=== PATIENT | male | born 1940 | race Caucasian/White ===

== ENCOUNTER → 2021-08-16 | Outpatient (CLI) | payer MEDICARE ==
[~2021-08-16] MED LIST: CALC1CAP7 PO; DOCU100C28 PO; HYDR-2761 PO; POLY119P4 PO; SAW/1TAB2 PO
== END ==
LOC: LAB 10:10
PROVIDERS: ATTEND Surgery
DX: Z01.812 Encounter for preprocedural laboratory examination (principal); Z20.822 Contact with and (suspected) exposure to COVID-19
CPT/HCPCS: C9803; U0003

== ENCOUNTER 2021-08-19 06:35 | Observation (INO) | payer MEDICARE ==
[~2021-08-19] VITALS: Ht 180.3 cm; Wt 56.8 kg
[2021-08-19] VITALS (10 sets, daily range): BP systolic 89–166; BP diastolic 55–98
[~2021-08-19 06:35] MED LIST changes: -CALC1CAP7 PO; +CLINDAMYCIN 900MG PREMIX 50 ML IV PRN; -DOCU100C28 PO; -HYDR-2761 PO; -POLY119P4 PO; -SAW/1TAB2 PO
[2021-08-19] MEDS ORDERED: SAW/1TAB2 PO (06:47)
[2021-08-19] MEDS ORDERED: CALC1CAP7 PO (06:47)
[2021-08-19] MEDS ORDERED: IV RINGERS,LACTATED 1000ML 1,000 ML IV SCH ×2 (07:00→11:15)
[2021-08-19] MEDS ORDERED: BUPIVACAINE-EPI 0.5% 30 ML VIAL KIT. ONE (07:03)
[2021-08-19] MEDS ORDERED: ONDANSETRON PF 4 MG/2 ML VIAL. ONE (07:59)
[2021-08-19] MEDS ORDERED: LIDOCAINE 2% PF 5 ML VIAL. ONE (07:59)
[2021-08-19] MEDS ORDERED: DEXAMETHASONE SOD PHOS 4 MG/ML VIAL ONE (07:59)
[2021-08-19] MEDS ORDERED: SEVOFLURANE 31 TO 60 MINUTES. IH ONE (07:59)
[2021-08-19] MEDS ORDERED: PROPOFOL 10 MG/ML (20ML) VIAL. IV ONE (07:59)
[2021-08-19] MEDS ORDERED: fentaNYL PF VIAL 100 MCG/2 ML VIAL ONE ×2 (08:00→09:42)
[2021-08-19] MEDS ORDERED: SUCCINYLCHOLINE 200 MG/10 ML VIAL. ONE (08:00)
[2021-08-19] MEDS ORDERED: KETAMINE HCL IN NACL, ISO-OSM 50 MG/5 ML SYRINGE ONE (09:09)
[2021-08-19] MEDS ORDERED: ePHEDrine PF IN SALINE 50 MG/10 ML SYRINGE. IV ONE (09:13)
[2021-08-19] MEDS ORDERED: PHENYLEPHRINE in 0.9% NACL PF 1 MG/10 ML SYRINGE. IV ONE (09:13)
[2021-08-19] MEDS ORDERED: PHENYLEPHRINE 10 MG/ML VIAL. ONE (09:37)
[2021-08-19] MEDS: IV 1/2 NORMAL SALINE 1,000 ML IV SCH (10:45)
[2021-08-19] MEDS ORDERED: ONDANSETRON PF 4 MG/2 ML VIAL. IVP PRN (10:45)
[2021-08-19] MEDS ORDERED: IV NORMAL SALINE 1000ML BAG 1,000 ML IV SCH (10:45)
[2021-08-19] MEDS ORDERED: 0.9 % SODIUM CHLORIDE 10 ML DISP.SYRIN. IV PRN (10:45)
[2021-08-19] MEDS ORDERED: NALOXONE 0.4 MG/ML VIAL. IV PRN (10:45)
[2021-08-19] MEDS ORDERED: HYDROcodone/APAP 5/325MG 1 TAB TABLET PO PRN (10:45)
[2021-08-19] MEDS ORDERED: HYDROmorphone 2 MG/ML INJ. IV PRN (10:45)
--- NOTE | 2021-08-19 10:45 | PDOC4 ---
Operative Note Operative Note Operative Note: Preoperative Diagnosis: Bilateral inguinal hernias Postoperative Diagnosis: Same Procedure: Repair of bilateral inguinal hernias Surgeon: Jason Machine Clipper: HARLEEN Awad MS 3 Anesthesia: General EBL: 20 mL Specimen: Right inguinal hernia sac to pathology Drains: None Complications: None Indication: The patient is a 81-year-old male who is referred with bilateral inguinal hernias. He was offered surgical repair. The risks of surgery were discussed which include bleeding, infection, pain, recurrence, anesthetic risk, urinary retention, paresthesias, potential need for additional surgery procedure. He understands and would like to proceed. Description: The patient was taken the operating room and placed supine on the operating table. General anesthesia was performed. The bilateral groins were shaved and prepped with ChloraPrep and draped with sterile towels, sheets, and an Ioban. Starting on the right an incision was made in the skin lines of the inguinal region with a scalpel. Cautery dissection was carried down to the external beak aponeurosis. The aponeurosis was opened down to the external ring. The contents of the inguinal canal were digitally mobilized and encircled with a Alee drain. There was a large indirect hernia sac present. This was mobilized from the surrounding cord structures. The sac was freed down to its base. The redundant sac was excised and sent as a specimen. The stump was oversewn with 2-0 Vicryl and inverted. The defect was filled with a large Phasix mesh plug. The plug was sutured into position with 2-0 Vicryl. The inguinal floor was then reinforced with a Prolene keyhole mesh patch. This was also sutured with 2-0 Vicryl. The external oblique was closed over the mesh with 2-0 Vicryl. Subcutaneous tissue was closed with 3-0 Vicryl. Skin was approximated with 4 Monocryl and infiltrated with half percent Marcaine with epinephrine. We then directed our attention to the left side. Similarly an incision was made in the skin and dissection was carried down to the external oblique. The external oblique was opened down to the external ring. The contents of the inguinal canal were digitally mobilized and encircled with a Mission drain. The patient had a moderate sized direct hernia defect. No indirect hernia sac was identified. The edges of the direct defect were clarified. The attenuated transversus was opened and the defect filled with an extra-large Phasix mesh plug. The plug was sutured into position with 2-0 Vicryl. The inguinal floor was then reinforced with a Prolene keyhole mesh patch. This was also sutured with 2-0 Vicryl. The external oblique was closed over the mesh with 2-0 Vicryl. Subcutaneous tissue was closed with 3-0 Vicryl. Skin was closed with 4-0 Monocryl and infiltrated with half percent Marcaine with epinephrine. Steri-Strips and sterile dressings were applied. The patient tolerated the procedure well and was sent to the recovery room in stable condition. At the end the case all counts were correct. IONA REYES MD Aug 19, 2021 10:45
[2021-08-19] MEDS ORDERED: fentaNYL PF VIAL 100 MCG/2 ML VIAL IVP PRN ×2 (11:15)
[2021-08-19] MEDS ORDERED: HYDROmorphone 2 MG/ML INJ. IVP PRN (11:15)
[2021-08-19] MEDS ORDERED: MORPHINE SULFATE 2 MG/ML INJ. IVP PRN (11:15)
[2021-08-19] MEDS ORDERED: PROCHLORPERAZINE 10 MG/2 ML VIAL. IVP PRN (11:15)
[2021-08-19] MEDS: HYDROcodone/APAP 5/325MG 1 TAB TABLET PO PRN (21:11)
[2021-08-20] MEDS: IV 1/2 NORMAL SALINE 1,000 ML IV SCH (00:04)
[2021-08-20 04:00] VITALS: BP 103/61
[2021-08-20] MEDS: HYDROcodone/APAP 5/325MG 1 TAB TABLET PO PRN ×2 (04:31→08:01)
[2021-08-20 07:11] VITALS: BP 104/63
[2021-08-20 11:27] VITALS: BP 107/64
[2021-08-20] MEDS ORDERED: HYDR-2761 PO (12:57)
--- NOTE | 2021-08-20 12:59 | DISCH ---
DISCHARGE INSTRUCTIONS Condition on Discharge Condition on Discharge: Stable Activity After Discharge Activity Instructions for Disc: Activity as tolerated Other activity instructions: no lifting > 15 lb Bathing Instructions: Shower-keep dressing dry Lifting Instructions after Dis: No heavy lifting, No pulling or pushing Exercise Instruction after Dis: Walk 10 min, 3 x per day, Progress as tolerated Driving Instructions after Dis: Do not drive Wound Incision Care Wound/Incision Care: May get incision wet, No wound care needed Contacting the DRSimi after DC Call your doctor for: Concerns you may have Follow-Up Follow up with: Dr Gomez 2 weeks, call to schedule [phone] KATYA SPICER PAYROLL SPECIALIST Aug 20, 2021 12:59
--- NOTE | 2021-08-20 13:36 | PDOC3 ---
Discharge Summary Visit Information Date of Admission: Aug 19, 2021 Date of Discharge: Aug 20, 2021 Admitting Diagnosis: Bilateral inguinal hernias Final Diagnosis Bilateral inguinal hernias Brief Hospital Course Allergies Allergies Coded Allergies Type Severity Reaction Last Updated Verified albuterol Adverse Reaction Intermediate 08/19/21 Yes beclomethasone Adverse Reaction Intermediate 08/19/21 Yes denosumab Adverse Reaction Intermediate 08/19/21 Yes guaifenesin Adverse Reaction Intermediate 08/19/21 Yes ipratropium Adverse Reaction Intermediate 08/19/21 Yes pseudoephedrine Adverse Reaction Intermediate 08/19/21 Yes Uncoded Allergies Type Severity Reaction Last Updated Verified SHARON LEE Adverse Reaction Intermediate 08/16/21 Vital Signs Vital Signs Date Time Temp Pulse Resp B/P (MAP) Pulse Ox O2 Delivery O2 Flow Rate FiO2 08/20/21 11:27 98.4 77 18 107/64 (78) 97 Room Air 10.0 98.4 Lab Results Laboratory Tests Test 08/19/21 06:50 POC SARS CoV-2 Antigen Negative (NEGATIVE) Brief Hospital Course Mr. Nowak is a 81 old male who underwent repair of Bilateral inguinal hernias. postoperatively tolerating diet, ambulating and pain is managed. Ready for discharge home Discharge Information Condition at Discharge: Stable Follow Up: Weeks (2) Disposition/Orders: D/C to Home Scheduled Calcium Carbonate/Vitamin D3 (Calcium 600 + Vit D 400 Softgl) 1 Each Capsule, 1 CAP PO BID for for 30 Days, #60 Ref 0 (Reported) Entered as Reported by: Ivy Lyle on 08/19/21 0647 Last Action: HELD on 08/19/211046 by IONA REYES Saw/Vit E/Sod Pam/Lyc/Beta/Pyg (Prostate Health Caplet) 1 Each Tablet, 1 EACH PO for , (Reported) Entered as Reported by: Ivy Lyle on 08/19/21 0647 Last Action: HELD on 08/19/211046 by IONA REYES Scheduled PRN Hydrocodone Bit/Acetaminophen (Hydrocodone-Apap 5-325 ) 1 Tab Tablet, 1 TAB PO PRN Q4HRS PRN for MILD PAIN 1-3, #20 Ref 0 Prescribed by: Katya Yates on 08/20/21 1257 Justicifation of Admission Dx: Justifications for Admission: Justification of Admission Dx: Yes Comments: bilat hernias KATYA YATES CREDIT RELATIONSHIP MANAGER Aug 20, 2021 13:36
--- NOTE | 2021-08-20 14:22 | NUR ---
pt was discharged home with self care by surgery. script for pain med sent to pharm of pt choice, and his sister picked him up at the main entrance to be taken home, he was advised to see surgery in 2 weeks, not to drive and additional instructions for his home care were given to him in his discharge paperwork. Cain Larry RN
== END 2021-08-20 14:27 | disposition home or self-care (01) ==
LOC: SURG 06:35 → 2 NORTH 13:21
PROVIDERS: ADMIT Surgery; ATTEND Surgery
DX: K40.20 Bilateral inguinal hernia, without obstruction or gangrene, not specified as recurrent (principal); Z20.822 Contact with and (suspected) exposure to COVID-19; Z90.49 Acquired absence of other specified parts of digestive tract; Z79.899 Other long term (current) drug therapy; Z98.890 Other specified postprocedural states
CPT/HCPCS: 49505; 96374; A4364; A4930; A6402; C1781; G0378; G0379; J0330; J1100; J2370; J2405; J2704; J3010; J3490; 88302; A4452

== ENCOUNTER 2021-08-22 15:42 | Emergency (ER) | payer MEDICARE ==
[~2021-08-22] VITALS: Ht 180.3 cm; Wt 63.0 kg
[~2021-08-22 15:42] MED LIST changes: +CALC1CAP7 PO; -CLINDAMYCIN 900MG PREMIX 50 ML IV PRN; +HYDR-2761 PO; +SAW/1TAB2 PO
--- NOTE | 2021-08-22 17:28 | RAD ---
XR ABDOMEN 2V INDICATION: constipation COMPARISON: None. TECHNIQUE: Supine and upright views of the abdomen were obtained. FINDINGS: Nonobstructive bowel gas pattern. No free air. Large colonic stool burden Lower chest demonstrates no acute abnormality. No acute osseous abnormality. IMPRESSION: Large colonic stool burden. Electronically signed by: Mann Sneed MD (08/22/2021 5:26 PM) [facility]
[2021-08-22] MEDS ORDERED: MAGNESIUM CITRATE 296 ML SOLUTION. PO ONE (17:45)
[2021-08-22 18:01] VITALS: BP 174/92
--- NOTE | 2021-08-22 19:07 | PHYS DOC ---
Past Medical History Past Surgical History: Other Smoking Status: Never Smoker Alcohol Use: None General Adult EDM: Chief Complaint: CONSTIPATION HPI: HPI: Patient is a 81 year old male who presents the ED today to be evaluated for constipation. Patient states he had bilateral inguinal hernia repairs 3 days ago and was sent home with hydrocodone. He states his been taking a stool softener. He states has not had a bowel movement since he had surgery. Patient denies any nausea, vomiting, diarrhea. Review of Systems: Review of Systems: Constitutional: Denies fever or chills. [] Eyes: Denies change in visual acuity. [] HENT: Denies nasal congestion or sore throat. [] Respiratory: Denies cough or shortness of breath. [] Cardiovascular: Denies chest pain or edema. [] GI: Reports abdominal pain, constipation, denies nausea, vomiting, bloody stools or diarrhea. [] : Denies dysuria. [] Musculoskeletal: Denies back pain or joint pain. [] Integument: Denies rash. [] Neurologic: Denies headache, focal weakness or sensory changes. [] Psychiatric: Denies depression or anxiety. [] Heart Score: C/O Chest Pain: N/A Risk Factors: Risk Factors: DM, Current or recent (<one month) smoker, HTN, HLP, family history of CAD, obesity. Risk Scores: Score 0 - 3: 2.5% MACE over next 6 weeks - Discharge Home Score 4 - 6: 20.3% MACE over next 6 weeks - Admit for Clinical Observation Score 7 - 10: 72.7% MACE over next 6 weeks - Early Invasive Strategies Current Medications: Current Medications Medications (Trade) Dose Ordered Sig/Joana Start Time Stop Time Status Last Admin Dose Admin Magnesium Citrate (Citroma) 296 ml 1X ONCE 08/22/21 17:45 08/22/21 17:47 DC 08/22/21 18:02 296 ML Allergies: Allergies: Allergies Coded Allergies Type Severity Reaction Last Updated Verified albuterol Adverse Reaction Intermediate 08/19/21 Yes beclomethasone Adverse Reaction Intermediate 08/19/21 Yes denosumab Adverse Reaction Intermediate 08/19/21 Yes guaifenesin Adverse Reaction Intermediate 08/19/21 Yes ipratropium Adverse Reaction Intermediate 08/19/21 Yes pseudoephedrine Adverse Reaction Intermediate 08/19/21 Yes Uncoded Allergies Type Severity Reaction Last Updated Verified ACCUTUSS MD Adverse Reaction Intermediate 08/16/21 Physical Exam: PE: Constitutional: Well developed, well nourished, no acute distress, non-toxic appearance. [] HENT: Normocephalic, atraumatic, bilateral external ears normal, oropharynx moist, no oral exudates, nose normal. [] Eyes: PERRLA, EOMI, conjunctiva normal, no discharge. [] Neck: Normal range of motion, no tenderness, supple, no stridor. [] Cardiovascular:Heart rate regular rhythm, no murmur [] Lungs & Thorax: Bilateral breath sounds clear to auscultation [] Abdomen: Bowel sounds normal, soft, no tenderness, no masses, no pulsatile masses. [] Skin: Warm, dry, no erythema, no rash. [] Back: No tenderness, no CVA tenderness. [] Extremities: No tenderness, no cyanosis, no clubbing, ROM intact, no edema. [] Neurologic: Alert and oriented X 3, normal motor function, normal sensory functi on, no focal deficits noted. [] Psychologic: Affect normal, judgement normal, mood normal. [] Current Patient Data: Vital Signs: Vital Signs Date Time Temp Pulse Resp B/P (MAP) Pulse Ox O2 Delivery O2 Flow Rate FiO2 08/22/21 18:01 104 18 174/92 (119) Room Air 08/22/21 16:31 97 08/22/21 15:45 97.7 97.7 EKG: EKG: [] Radiology/Procedures: Radiology/Procedures: []PROCEDURE: ABDOMEN SUPINE & UPRIGHT XR ABDOMEN 2V INDICATION: constipation COMPARISON: None. TECHNIQUE: Supine and upright views of the abdomen were obtained. FINDINGS: Nonobstructive bowel gas pattern. No free air. Large colonic stool burden Lower chest demonstrates no acute abnormality. No acute osseous abnormality. IMPRESSION: Large colonic stool burden. Electronically signed by: Ambreen Butler MD (08/22/2021 5:26 PM) [facility] DICTATED and SIGNED BY: AMBREEN BUTLER MD DATE: 08/22/21 676 Course & Med Decision Making: Course & Med Decision Making Pertinent Labs and Imaging studies reviewed. (See chart for details) This a 81-year-old male patient presenting to the ED today with constipation that began 3 days ago after having bilateral hernia repairs. He states he has been taking hydrocodone for pain and a stool softener. No bowel movement since surgery. abdomen supine and upright x-rays noted for large colonic stool burden. Patient was given mag citrate and had an enema performed in the ED. He had a bowel movement and was discharged to home. He states he stopped taking his pain medicine when he noted he was constipated. Encourage patient to also increase dietary fiber intake as well as water intake. Recommended fiber bars. Encourage him to take MiraLAX. Also recommended a stool softener. Recommended mag citrate anytime he is constipated Dragon Disclaimer: Dragmacy Disclaimer: This electronic medical record was generated, in whole or in part, using a voice recognition dictation system. Departure Departure Impression: Primary Impression: Constipation Qualified Codes: K59.00 - Constipation, unspecified Disposition: HOME / SELF CARE / HOMELESS Condition: STABLE Referrals: YULY LUIS (PCP) Follow-up with your doctor in the next 7 days Patient Instructions: Constipation, Adult Additional Instructions: You were evaluated in the emergency room for constipation. Please increase your dietary fiber intake as well as water intake. Consider taking fiber bars. Consider taking MiraLAX and a stool softener every day. Anytime you are constipated please consider magnesium citrate or milk of magnesia as well as an enema. Follow-up with your doctor in 1 week Scripts Docusate Sodium (DOCUSATE SODIUM) 100 Mg Capsule 1 CAP PO BID for constipation for 7 Days, #14 CAP 0 Refills Prov: JASON CARRANZA SENIOR BRANCH MANAGER 08/22/21 Polyethylene Glycol 3350 (MIRALAX) 119 Gm Powder 17 GM PO DAILY for constipation, #255 GM 0 Refills dissolve in water Prov: JASON CARRANZA SENIOR BRANCH MANAGER 08/22/21 JASON CARRANZA APRN Aug 22, 2021 19:07
[2021-08-22] MEDS ORDERED: DOCU100C28 PO (19:09)
[2021-08-22] MEDS ORDERED: POLY119P4 PO (19:09)
== END 2021-08-22 19:42 | disposition home or self-care (01) ==
LOC: ER 15:42
DX: K59.00 Constipation, unspecified (principal)
CPT/HCPCS: 74021; 99285-25